=== PATIENT | female | born 1985 | race American Indian/Alaskan Native ===

== ENCOUNTER 2016-12-24 12:26 | Emergency (ER) | payer MEDICAID ==
[2016-12-24] MEDS ORDERED: Lidocaine 2% Viscous Solution 15 ML Cup PO ONE (13:31)
--- NOTE | 2016-12-24 13:37 | EDM.PDOC ---
ED HPI ENT - General Chief Complaint: ENT Problem Stated Complaint: HOLE IN TOOTH, FACE FEELS NUMB Time Seen by Provider: 12/24/16 13:35 Source of Information: Reports: Patient History Limitations: Reports: No limitations - History of Present Illness INITIAL COMMENTS - FREE TEXT/NARRATIVE: This 31 yo female patient reports to the ED with pain in her right upper posterior tooth. The patient reports she has noticed increased pain over the past week. The patient attempted to get into the [facility] today, but could not get into the clinic as they were closed today for [place]. Symptom Onset Date: 12/17/16 Timing/Duration: Reports: Constant, Getting worse Severity: moderate Location: Reports: mouth Quality: Reports: Ache, Sharp Improves with: Reports: None Worsens with: Reports: None Associated Symptoms: Reports: no other symptoms - Related Data Allergies/ADRs: Allergies Allergy/AdvReac Type Severity Reaction Status Date / Time No Known Allergies Allergy Verified 12/24/16 12:38 Home Meds: Home Meds Sertraline [Zoloft] 100 mg PO DAILY 03/06/14 [History] metFORMIN [Glucophage] 1,000 mg PO BID 06/30/14 [History] Lisinopril 10 mg PO DAILY 12/31/14 [History] glyBURIDE [Glyburide] 10 mg PO BID 12/31/14 [History] Insulin Detemir [Levemir] 25 unit SUBCUT BEDTIME 09/13/15 [History] Past Medical History HEENT History: Reports: None Cardiovascular History: Reports: High cholesterol, Hypertension Respiratory History: Reports: None Gastrointestinal History: Reports: Other (see below) Other Gastrointestinal History: ABNORMAL LIVER ENZYMES; ABCESS OF ABDOMINAL WALL Genitourinary History: Reports: None GYN History: Reports: , Other (see below) Other OB/BYN History: IUD IN PLACE Musculoskeletal History: Reports: Fracture, Other (see below) Other Musculoskeletal History: PLANTAR FASCITIS; BIMALLEOLAR FRATURE OF R ANKLE Neurological History: Reports: None Psychiatric History: Reports: Addiction, Depression, Other (see below) Other Psychiatric History: ALCOHOL HABITUATION; INTELLECTUAL DISABILITY- CEREBRAL PALSY Endocrine/Metabolic History: Reports: Diabetes, type II, Obesity/BMI 30+ Hematologic History: Reports: None Immunologic History: Reports: None Oncologic (Cancer) History: Reports: None Dermatologic History: Reports: None - Infectious Disease History Infectious Disease History: Reports: Chicken pox - Past Surgical History Head Surgeries/Procedures: Reports: None HEENT Surgical History: Reports: Adenoidectomy, Tonsillectomy Cardiovascular Surgical History: Reports: None Respiratory Surgical History: Reports: None GI Surgical History: Reports: None Female Surgical History: Reports: D&C, Dilitation & evacuation Endocrine Surgical History: Reports: None Neurological Surgical History: Reports: None Musculoskeletal Surgical History: Reports: Other (see below) Other Musculoskeletal Surgeries/Procedures:: R ANKLE SURGERY Oncologic Surgical History: Reports: None Social & Family History - Family History Family Medical History: Noncontributory - Tobacco Use Smoking Status *Q: Current Every Day Smoker Years of Tobacco use: 14 Packs/Tins Daily: 0.5 Used Tobacco, but Quit: No Second Hand Smoke Exposure: Yes - Caffeine Use Caffeine Use: Reports: Coffee, Soda - Alcohol Use Days Per Week of Alcohol Use: 0 - Recreational Drug Use Recreational Drug Use: Yes Recreational Drug Type: Reports: Marijuana/Hashish ED ROS ENT - Review of Systems Review Of Systems: ROS reveals no pertinent complaints other than HPI. ED EXAM, ENT - Physical Exam Exam: See Below Exam Limited By: No limitations General Appearance: alert, WD/WN, moderate distress Eye Exam: bilateral eye: EOMI, normal inspection, PERRL Ears: normal external exam, normal canal, hearing grossly normal, normal TMs Nose: normal inspection, normal mucousa, no blood Mouth/Throat: Dental pain, Dental tenderness, Other (Numerous teeth with dental caries) Head: atraumatic, normocephalic Neck: normal inspection, supple, non-tender, full range of motion Respiratory/Chest: no respiratory distress, lungs clear, normal breath sounds, no accessory muscle use, chest non-tender Cardiovascular: normal peripheral pulses, regular rate, rhythm, no edema, no gallop, no JVD, no murmur, no rub GI/Abdominal: normal bowel sounds, soft, non tender, no organomegaly, no distention, no abnormal bruit, no mass (Female) Exam: Deferred Rectal (Female) Exam: Deferred Back: normal inspection, full range of motion Extremities: normal inspection, normal range of motion, non-tender, no pedal edema, normal capillary refill Neurological: alert Psychiatric: normal affect, normal mood Skin: Warm, Dry, Intact, Normal color, No rash Lymphatic: no adenopathy Course - Orders/Labs/Meds Meds: Medications Discontinued Medications Generic Name Dose Route Start Last Admin Trade Name Javier PRN Reason Stop Dose Admin Lidocaine HCl 15 ml 12/24/16 13:31 Xylocaine 2% Viscous PO 12/24/16 13:32 ONETIME ONE Departure - Departure Time of Disposition: 13:25 Disposition: Home, Self-Care 01 Condition: fair Clinical Impression: Dental caries, Dental caries extending into dentin Instructions: Dental Caries, [id number] Forms: ED Department Discharge Care Plan Goals: The patient was advised of the examination results during the visit. The patient was given some Viscous Lidocaine 2% to apply to the affected area while in the ED. The patient was discharged with a script for Clindamycin (300 mg) # 30 to take 1 by mouth 3 times per day for 10 days and Viscous Lidocaine 2% #100 mL to apply 10 mL to the affected area 3 times per day as needed. The patient should follow-up with a dentist for continued evaluation and management.
[2016-12-24 14:04] VITALS: BP 136/87
== END 2016-12-24 13:39 | disposition home or self-care (01) ==
LOC: DL.ED 12:26
DX: K02.9 Dental caries, unspecified (principal); E78.00 Pure hypercholesterolemia, unspecified; I10 Essential (primary) hypertension; E11.9 Type 2 diabetes mellitus without complications; E66.9 Obesity, unspecified; F17.210 Nicotine dependence, cigarettes, uncomplicated; Z79.899 Other long term (current) drug therapy; Z98.890 Other specified postprocedural states
CPT/HCPCS: 99282; A9270

== ENCOUNTER 2017-06-24 21:23 | Emergency (ER) | payer MEDICAID ==
[2017-06-24 21:40] VITALS: BP 114/81
[2017-06-24 22:08] LABS: CHLORIDE,CL 102 mmol/L (101-111); SODIUM,NA 139 mmol/L (135-145)
--- NOTE | 2017-06-24 23:49 | EDM.PDOC ---
ED HPI GENERAL MEDICAL PROBLEM - General Chief Complaint: Drug or Alcohol Abuse Stated Complaint: IN BY AMBULANCE Time Seen by Provider: 06/24/17 21:40 Source of Information: Reports: EMS, Police History Limitations: Reports: Intoxication - History of Present Illness INITIAL COMMENTS - FREE TEXT/NARRATIVE: ED via [facility] called to residence by neighbor due to patient screaming. Upon entering residence, patient was found lying on floor, intoxicated and naked, No signs of injury and patient reported to have been fondling herself. Patient admits to drinking everyday for the apst 5 weeks since SO left her. Denied other drug use. - Related Data Allergies Allergy/AdvReac Type Severity Reaction Status Date / Time No Known Allergies Allergy Verified 06/24/17 21:39 Home Meds: Home Meds Sertraline [Zoloft] 100 mg PO DAILY 03/06/14 [History] metFORMIN [Glucophage] 1,000 mg PO BID 06/30/14 [History] Lisinopril 10 mg PO DAILY 12/31/14 [History] glyBURIDE [Glyburide] 10 mg PO BID 12/31/14 [History] Insulin Detemir [Levemir] 25 unit SUBCUT BEDTIME 09/13/15 [History] Past Medical History HEENT History: Reports: None Cardiovascular History: Reports: High Cholesterol, Hypertension Respiratory History: Reports: None Gastrointestinal History: Reports: Other (See Below) Other Gastrointestinal History: ABNORMAL LIVER ENZYMES; ABCESS OF ABDOMINAL WALL Genitourinary History: Reports: None SIDER History: Reports: , Other (See Below) Other OB/BYN History: IUD IN PLACE Musculoskeletal History: Reports: Fracture, Other (See Below) Other Musculoskeletal History: PLANTAR FASCITIS; BIMALLEOLAR FRATURE OF R ANKLE Neurological History: Reports: None Psychiatric History: Reports: Addiction, Depression, Other (See Below) Other Psychiatric History: ALCOHOL HABITUATION; INTELLECTUAL DISABILITY- CEREBRAL PALSY Endocrine/Metabolic History: Reports: Diabetes, Type II, Obesity/BMI 30+ Hematologic History: Reports: None Immunologic History: Reports: None Oncologic (Cancer) History: Reports: None Dermatologic History: Reports: None - Infectious Disease History Infectious Disease History: Reports: Chicken Pox - Past Surgical History Head Surgeries/Procedures: Reports: None HEENT Surgical History: Reports: Adenoidectomy, Tonsillectomy Respiratory Surgical History: Reports: None Female Surgical History: Reports: D&C, Dilitation & Evacuation Neurological Surgical History: Reports: None Musculoskeletal Surgical History: Reports: Other (See Below) Oncologic Surgical History: Reports: None Social & Family History - Family History Family Medical History: Noncontributory - Tobacco Use Smoking Status *Q: Current Every Day Smoker Years of Tobacco use: 14 Packs/Tins Daily: 0.5 Used Tobacco, but Quit: No Second Hand Smoke Exposure: Yes - Caffeine Use Caffeine Use: Reports: Coffee, Soda - Alcohol Use Days Per Week of Alcohol Use: 0 - Recreational Drug Use Recreational Drug Use: Yes Recreational Drug Type: Reports: Marijuana/Hashish ED ROS GENERAL - Review of Systems Review Of Systems: ROS reveals no pertinent complaints other than HPI. - Physical Exam Exam: See Below Exam Limited By: Intoxication General Appearance: Obese, Other (Drowsy, arouses to voice, ) Eye Exam: Bilateral Eye: EOMI, PERRL Ears: Normal External Exam, Normal TMs Nose: Other (scant dried blood right nare. Patient observed, picking nose. ) Neck: Normal Inspection Respiratory/Chest: No Respiratory Distress, Lungs Clear, Normal Breath Sounds Cardiovascular: Normal Peripheral Pulses, Regular Rate, Rhythm GI/Abdominal: Normal Bowel Sounds, Soft Neuro Exam (Abbreviated): Inattentive, Slow to Respond Back Exam: Normal Inspection Extremities: Normal Inspection Psychiatric: Normal Affect Skin Exam: Warm, Dry, Intact, Normal Color Course - Vital Signs Last Recorded V/S: Last Vital Signs Temp 96.4 F 06/24/17 21:39 Pulse 85 06/24/17 21:39 Resp 16 06/24/17 21:39 BP 114/81 06/24/17 21:39 Pulse Ox 95 06/24/17 21:39 - Orders/Labs/Meds Orders: Active Orders 24 hr Category Date Time Status Glucose [Blood Glucose Check, Bedside] [RC] ONETIME Care 06/24/17 23:10 Inactive Labs: Laboratory Tests 06/24/17 06/24/17 06/24/17 Range/Units 21:39 21:39 21:43 WBC 12.3 H (5.0-10.0) 10^3/uL RBC 5.45 H (4.2-5.4) 10^6/uL Hgb 14.9 D (12.0-16.0) g/dL Hct 44.4 (37.0-47.0) % MCV 81.5 (80-100) fL MCH 27.3 (27.0-34.0) pg MCHC 33.6 (33.0-35.0) g/dL Plt Count 279 D (150-450) 10^3/uL Neut % (Auto) 59.7 (42.2-75.2) % Lymph % (Auto) 31.7 (20.5-50.1) % [place] % (Auto) 6.5 (2-8) % Eos % (Auto) 1.7 (1.0-3.0) % Baso % (Auto) 0.4 (0.0-1.0) % Sodium (135-145) mmol/L Potassium (3.6-5.0) mmol/L Chloride (101-111) mmol/L Carbon Dioxide (21.0-31.0) mmol/L Anion Gap BUN (7-18) mg/dL Creatinine (0.6-1.3) mg/dL Est Cr Clr Drug Dosing mL/min Estimated GFR (MDRD) BUN/Creatinine Ratio Glucose (74-105) mg/dL Calcium (8.4-10.2) mg/dl Total Bilirubin (0.2-1.0) mg/dL AST (10-42) IU/L ALT (10-60) IU/L Alkaline Phosphatase (42-121) IU/L Total Protein (6.7-8.2) g/dl Albumin (3.2-5.5) g/dl Globulin Albumin/Globulin Ratio HCG, Qual Urine Color Light yellow (YELLOW) Urine Appearance Clear (CLEAR) Urine pH 6.0 (5.0-9.0) Ur Specific [place] <= 1.005 (1.005-1.030) Urine Protein Negative (NEGATIVE) Urine Glucose (UA) 500 H (NEGATIVE) Urine Ketones Negative (NEGATIVE) Urine Occult Blood Negative (NEGATIVE) Urine Nitrite Negative (NEGATIVE) Urine Bilirubin Negative (NEGATIVE) Urine Urobilinogen 0.2 (0.2-1.0) mg/dL Ur Leukocyte Esterase Negative (NEGATIVE) Urine RBC 0-5 /HPF Urine WBC 0-5 (0-5/HPF) /HPF Ur Epithelial Cells Rare /HPF Urine Bacteria Rare (0-FEW/HPF) /HPF Urine Opiates Screen Negative (NEGATIVE) Ur Oxycodone Screen Negative (NEGATIVE) Urine Methadone Screen Negative (NEGATIVE) Ur Barbiturates Screen Negative (NEGATIVE) U Tricyclic Antidepress Negative (NEGATIVE) Ur Phencyclidine Scrn Negative (NEGATIVE) Ur Amphetamine Screen Negative (NEGATIVE) U Methamphetamines Scrn Positive H (NEGATIVE) Urine MDMA Screen Negative (NEGATIVE) U Benzodiazepines Scrn Negative (NEGATIVE) Urine Cocaine Screen Negative (NEGATIVE) U Marijuana (THC) Screen Positive H (NEGATIVE) Ethyl Alcohol mg/dL 06/24/17 06/24/17 06/24/17 Range/Units 21:43 22:00 22:55 WBC (5.0-10.0) 10^3/uL RBC (4.2-5.4) 10^6/uL Hgb (12.0-16.0) g/dL Hct (37.0-47.0) % MCV (80-100) fL MCH (27.0-34.0) pg MCHC (33.0-35.0) g/dL Plt Count (150-450) 10^3/uL Neut % (Auto) (42.2-75.2) % Lymph % (Auto) (20.5-50.1) % [place] % (Auto) (2-8) % Eos % (Auto) (1.0-3.0) % Baso % (Auto) (0.0-1.0) % Sodium 139 (135-145) mmol/L Potassium 3.3 L (3.6-5.0) mmol/L Chloride 102 (101-111) mmol/L Carbon Dioxide 23.0 (21.0-31.0) mmol/L Anion Gap 17.3 BUN 6 L (7-18) mg/dL Creatinine 0.6 (0.6-1.3) mg/dL Est Cr Clr Drug Dosing 129.69 mL/min Estimated GFR (MDRD) > 60 BUN/Creatinine Ratio 10.00 Glucose 314 H (74-105) mg/dL Calcium 9.2 (8.4-10.2) mg/dl Total Bilirubin 0.5 (0.2-1.0) mg/dL AST 102 H (10-42) IU/L ALT 141 H (10-60) IU/L Alkaline Phosphatase 129 H (42-121) IU/L Total Protein 7.6 (6.7-8.2) g/dl Albumin 4.0 (3.2-5.5) g/dl Globulin 3.6 Albumin/Globulin Ratio 1.11 HCG, Qual Negative Urine Color (YELLOW) Urine Appearance (CLEAR) Urine pH (5.0-9.0) Ur Specific [place] (1.005-1.030) Urine Protein (NEGATIVE) Urine Glucose (UA) (NEGATIVE) Urine Ketones (NEGATIVE) Urine Occult Blood (NEGATIVE) Urine Nitrite (NEGATIVE) Urine Bilirubin (NEGATIVE) Urine Urobilinogen (0.2-1.0) mg/dL Ur Leukocyte Esterase (NEGATIVE) Urine RBC /HPF Urine WBC (0-5/HPF) /HPF Ur Epithelial Cells /HPF Urine Bacteria (0-FEW/HPF) /HPF Urine Opiates Screen (NEGATIVE) Ur Oxycodone Screen (NEGATIVE) Urine Methadone Screen (NEGATIVE) Ur Barbiturates Screen (NEGATIVE) U Tricyclic Antidepress (NEGATIVE) Ur Phencyclidine Scrn (NEGATIVE) Ur Amphetamine Screen (NEGATIVE) U Methamphetamines Scrn (NEGATIVE) Urine MDMA Screen (NEGATIVE) U Benzodiazepines Scrn (NEGATIVE) Urine Cocaine Screen (NEGATIVE) U Marijuana (THC) Screen (NEGATIVE) Ethyl Alcohol 330 284 mg/dL - Re-Assessments/Exams Free Text/Narrative Re-Assessment/Exam: Patient stripped off her clothing, sleeping, Easily arousable. Cooperative. Discharged to Detox. Departure - Departure Time of Disposition: 23:48 Disposition: Home, Self-Care 01 Condition: Fair Clinical Impression: Alcohol abuse, Drug abuse - Discharge Information Instructions: Alcohol Intoxication, [id number] Forms: ED Department Discharge Additional Instructions: stable medically for detox release when stable consider A&D eval when sober - My Orders Last 24 Hours: My Active Orders 06/24/17 23:10 Glucose [Blood Glucose Check, Bedside] [RC] ONETIME - Assessment/Plan Last 24 Hours: My Active Orders 06/24/17 23:10 Glucose [Blood Glucose Check, Bedside] [RC] ONETIME
== END 2017-06-25 00:05 | disposition home or self-care (01) ==
LOC: DL.ED 21:23
DX: F10.129 Alcohol abuse with intoxication, unspecified (principal); F17.210 Nicotine dependence, cigarettes, uncomplicated; E11.9 Type 2 diabetes mellitus without complications; I10 Essential (primary) hypertension; F32.9 Major depressive disorder, single episode, unspecified; E66.9 Obesity, unspecified; F19.10 Other psychoactive substance abuse, uncomplicated; Z79.4 Long term (current) use of insulin; Y90.8 Blood alcohol level of 240 mg/100 ml or more; Z79.899 Other long term (current) drug therapy
CPT/HCPCS: 36415; 80053; 80305; 81001; 84703; 85025; 99284; G0480

== ENCOUNTER 2017-10-11 18:12 | Emergency (ER) | payer MEDICAID | END 2017-10-11 19:13 | disposition left against medical advice (07) | LOC: DL.ED 18:12 | DX: Z53.21 Procedure and treatment not carried out due to patient leaving prior to being seen by health care provider (principal) ==

== ENCOUNTER 2018-04-19 04:53 | Emergency (ER) | payer MEDICAID ==
[2018-04-19 04:58] VITALS: BP 189/83
--- NOTE | 2018-04-19 05:02 | EDM.PDOC ---
ED HPI GENERAL MEDICAL PROBLEM - General Chief Complaint: Lower Extremity Injury/Pain Stated Complaint: SPRAINED ANKLE NO PHONE Time Seen by Provider: 04/19/18 05:01 Source of Information: Reports: Patient History Limitations: Reports: No Limitations - History of Present Illness INITIAL COMMENTS - FREE TEXT/NARRATIVE: reports falling while walking 2 hours ago, pain, unable to bear weight. Same ankle as "shattered 2-3 years ago." Admits ETOH few hours prior. Pain right ankle Right Ankle Pain Score (Numeric/FACES): 8 - Related Data Allergies Allergy/AdvReac Type Severity Reaction Status Date / Time No Known Allergies Allergy Verified 04/19/18 05:01 Home Meds: Home Meds Sertraline [Zoloft] 100 mg PO DAILY 03/06/14 [History] metFORMIN [Glucophage] 1,000 mg PO BID 06/30/14 [History] Lisinopril 10 mg PO DAILY 12/31/14 [History] glyBURIDE [Glyburide] 10 mg PO BID 12/31/14 [History] Insulin Detemir [Levemir] 25 unit SUBCUT BEDTIME 09/13/15 [History] Past Medical History HEENT History: Reports: None Cardiovascular History: Reports: High Cholesterol, Hypertension Respiratory History: Reports: None Gastrointestinal History: Reports: Other (See Below) Other Gastrointestinal History: ABNORMAL LIVER ENZYMES; ABCESS OF ABDOMINAL WALL Genitourinary History: Reports: None PLASTER DIE MAKER History: Reports: , Other (See Below) Other PLASTER DIE MAKER History: IUD IN PLACE Musculoskeletal History: Reports: Fracture, Other (See Below) Other Musculoskeletal History: PLANTAR FASCITIS; BIMALLEOLAR FRATURE OF R ANKLE Neurological History: Reports: None Psychiatric History: Reports: Addiction, Depression, Other (See Below) Other Psychiatric History: ALCOHOL HABITUATION; INTELLECTUAL DISABILITY- CEREBRAL PALSY Endocrine/Metabolic History: Reports: Diabetes, Type II, Obesity/BMI 30+ Hematologic History: Reports: None Immunologic History: Reports: None Oncologic (Cancer) History: Reports: None Dermatologic History: Reports: None - Infectious Disease History Infectious Disease History: Reports: Chicken Pox - Past Surgical History Head Surgeries/Procedures: Reports: None HEENT Surgical History: Reports: Adenoidectomy, Tonsillectomy Respiratory Surgical History: Reports: None Female Surgical History: Reports: D&C, Dilitation & Evacuation Neurological Surgical History: Reports: None Musculoskeletal Surgical History: Reports: Other (See Below) Other Musculoskeletal Surgeries/Procedures:: surgery 2-3 years ago on right ankle Oncologic Surgical History: Reports: None Social & Family History - Family History Family Medical History: Noncontributory - Caffeine Use Caffeine Use: Reports: Coffee, Soda Review of Systems - Review of Systems Review Of Systems: ROS reveals no pertinent complaints other than HPI. ED EXAM, GENERAL - Physical Exam Exam: See Below Exam Limited By: No Limitations General Appearance: Alert, Mild Distress Eye Exam: Bilateral Eye: EOMI (sclera injected) Ears: Normal External Exam, Hearing Grossly Normal Nose: Normal Inspection Respiratory/Chest: No Respiratory Distress Cardiovascular: Normal Peripheral Pulses, Regular Rate, Rhythm Extremities: Normal Range of Motion, Joint Swelling (right ankle) Neurological: Alert, Oriented, Normal Cognition Skin Exam: Warm, Dry, Intact, Ecchymosis (right lateral ankle and forefoot.), Other (well healed surgical scars right ankle) Course - Vital Signs Last Recorded V/S: Last Vital Signs Temp 97.9 F 04/19/18 04:54 Pulse 113 H 04/19/18 04:54 Resp 18 04/19/18 04:54 BP 189/83 H 04/19/18 04:54 Pulse Ox 97 04/19/18 04:54 - Orders/Labs/Meds Meds: Medications Discontinued Medications Generic Name Dose Route Start Last Admin Trade Name Javier PRN Reason Stop Dose Admin Acetaminophen 650 mg 04/19/18 05:29 04/19/18 05:50 Tylenol PO 04/19/18 05:30 650 mg NOW ONE Administration - Radiology Interpretation Free Text/Narrative:: Name: KAYODE SERRANO Age: 33Years F Date: 04/19/2018 SSN: -- : 1985 Study: XR ANKLE COMPLETE MIN 3 VIEWS Requesting Physician: LYNN SIDDIQI Images: 3 Addl Studies: Provided Clinical History: Contrast: Contrast Medium: Contrast Amount: Contrast Method: CONFIDENTIALITY STATEMENT This report is intended only for use by the referring physician, and only in accordance with law. If you received this in error, call [phone]. Page 1 of 1 EXAM: XR Right Ankle Complete, 3 or More Views CLINICAL HISTORY: 33 years old, female; Signs and symptoms; Other: Fall/pain TECHNIQUE: Frontal, lateral and oblique views of the right ankle. COMPARISON: CR - Ankle Min 3V Rt 2014-12-31 03:00 FINDINGS: Bones/joints: Status post internal fixation of a bimalleolar fracture with excellent alignment No acute fracture or dislocation Osteoarthritis of the ankle joint Soft tissues: Unremarkable. IMPRESSION: No acute fracture dislocation Thank you for allowing us to participate in the care of your patient. Dictated and Authenticated by: Saran Walker MD 04/19/2018 6:27 AM Central Time ([place] & [place]) Departure - Departure Time of Disposition: 06:33 Disposition: Home, Self-Care 01 Condition: Good Clinical Impression: Right ankle sprain Qualifiers: Encounter type: initial encounter Involved ligament of ankle: unspecified ligament Qualified Code(s): S93.401A - Sprain of unspecified ligament of right ankle, initial encounter - Discharge Information *PRESCRIPTION DRUG MONITORING PROGRAM REVIEWED*: No Instructions: Ankle Sprain, [id number] Forms: ED Department Discharge Additional Instructions: ice, elevate, liz wrap, may use black boot if locate crutches, weight bearing as tolerated follow up in clinic one week if unable to bear weight Tylenol or ibuprofen, may alternate every 4 hours as needed
[2018-04-19] MEDS ORDERED: Acetaminophen 325 MG Tab PO ONE (05:29)
== END 2018-04-19 06:43 | disposition home or self-care (01) ==
LOC: DL.ED 04:53
DX: S93.401A Sprain of unspecified ligament of right ankle, initial encounter (principal); I10 Essential (primary) hypertension; E11.9 Type 2 diabetes mellitus without complications; E66.9 Obesity, unspecified; Z79.899 Other long term (current) drug therapy; W19.XXXA Unspecified fall, initial encounter
CPT/HCPCS: 73610; 99283; A9270

== ENCOUNTER 2018-05-12 01:35 | Emergency (ER) | payer MEDICAID ==
[2018-05-12 01:49] VITALS: BP 118/62
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
[2018-05-12] MEDS ORDERED: MVI, Adult with Vitamin K 10 ML, Folic Acid 1 MG, Thiamine 100 MG in Lactated Ringers 1... IV ONE ×4 (01:59)
[2018-05-12 02:24] LABS: ACETAMINOPHEN < 10
[2018-05-12 02:25] LABS: ANION GAP 14.6; CHLORIDE,CL 103 mmol/L (101-111); SODIUM,NA 139 mmol/L (135-145)
== END 2018-05-12 02:54 | disposition home or self-care (01) ==
LOC: DL.ED 01:35
DX: F10.129 Alcohol abuse with intoxication, unspecified (principal); F15.10 Other stimulant abuse, uncomplicated; I10 Essential (primary) hypertension; E11.9 Type 2 diabetes mellitus without complications; E66.9 Obesity, unspecified; Z79.4 Long term (current) use of insulin; Y90.8 Blood alcohol level of 240 mg/100 ml or more; Z79.899 Other long term (current) drug therapy
CPT/HCPCS: 36415; 80053; 80305; 81001; 81025; 85025; 96374; 99283; G0480; J3411; J7120; J3490

== ENCOUNTER 2018-06-05 14:52 | Emergency (ER) | payer MEDICAID ==
[2018-06-05 15:03] VITALS: BP 146/95
[2018-06-05] MEDS ORDERED: Ondansetron 4 MG/2 ML SDV IV ONE (15:18)
[2018-06-05] MEDS ORDERED: Sodium Chloride 0.9% 1,000 ML IV ONE (15:18)
[2018-06-05 15:56] LABS: ANION GAP 17.5; CHLORIDE,CL 94 mmol/L (101-111); SODIUM,NA 131 mmol/L (135-145)
== END 2018-06-05 16:35 | disposition left against medical advice (07) ==
LOC: DL.ED 14:52
DX: Z53.20 Procedure and treatment not carried out because of patient's decision for unspecified reasons (principal)
CPT/HCPCS: 36415; 80053; 81001; 82150; 83690; 85025; 96365; 96375; 99283; J2405; J7030

== ENCOUNTER 2018-06-12 15:19 | Observation (INO) | payer MEDICAID ==
[2018-06-12 15:59] LABS: ANION GAP 16.3; CHLORIDE,CL 100 mmol/L (101-111); SODIUM,NA 133 mmol/L (135-145)
[2018-06-12] MEDS ORDERED: Sodium Chloride 0.9% 10 ML Syringe FLUSH PRN (16:21)
[2018-06-12] MEDS ORDERED: MVI, Adult with Vitamin K 10 ML, Thiamine 100 MG, Folic Acid 1 MG in Lactated Ringers 1... IV ONE ×4 (16:21)
--- NOTE | 2018-06-12 16:34 | EDM.PDOCBH ---
Scribed by Bethanie Manning 06/12/18 [id number] for Lester Winslow MD ED HPI GENERAL MEDICAL PROBLEM - General Chief Complaint: Drug or Alcohol Abuse Stated Complaint: MEDICAL CLEARANCE Time Seen by Provider: 06/12/18 15:47 Source of Information: Reports: Patient, RN, RN Notes Reviewed History Limitations: Reports: Intoxication - History of Present Illness INITIAL COMMENTS - FREE TEXT/NARRATIVE: Patient was brought to ER by police for medical clearance due to being found intoxicated and "passed out" in a chair at someone's home. Patient admits to heavy alcohol use, but ie unable to provide any other history. Onset: Today Severity: Moderate Improves with: Reports: None Worsens with: Reports: None Associated Symptoms: Reports: No Other Symptoms - Related Data Allergies Allergy/AdvReac Type Severity Reaction Status Date / Time No Known Allergies Allergy Verified 06/11/18 07:04 Home Meds: Home Meds Sertraline [Zoloft] 100 mg PO DAILY 03/06/14 [History] metFORMIN [Glucophage] 1,000 mg PO BID 06/30/14 [History] Lisinopril 10 mg PO DAILY 12/31/14 [History] glyBURIDE [Glyburide] 10 mg PO BID 12/31/14 [History] Insulin Detemir [Levemir] 25 unit SUBCUT BEDTIME 09/13/15 [History] Past Medical History HEENT History: Reports: None Cardiovascular History: Reports: High Cholesterol, Hypertension Respiratory History: Reports: None Gastrointestinal History: Reports: Other (See Below) Other Gastrointestinal History: ABNORMAL LIVER ENZYMES; ABCESS OF ABDOMINAL WALL Genitourinary History: Reports: None BALL HOLDER History: Reports: , Other (See Below) Other BALL HOLDER History: IUD IN PLACE Musculoskeletal History: Reports: Fracture, Other (See Below) Other Musculoskeletal History: PLANTAR FASCITIS; BIMALLEOLAR FRATURE OF R ANKLE Neurological History: Reports: None Psychiatric History: Reports: Addiction, Depression, Other (See Below) Other Psychiatric History: ALCOHOL HABITUATION; INTELLECTUAL DISABILITY- CEREBRAL PALSY Endocrine/Metabolic History: Reports: Diabetes, Type II, Obesity/BMI 30+ Hematologic History: Reports: None Immunologic History: Reports: None Oncologic (Cancer) History: Reports: None Dermatologic History: Reports: None - Infectious Disease History Infectious Disease History: Reports: Chicken Pox - Past Surgical History Head Surgeries/Procedures: Reports: None HEENT Surgical History: Reports: Adenoidectomy, Tonsillectomy Respiratory Surgical History: Reports: None Female Surgical History: Reports: D&C, Dilitation & Evacuation Neurological Surgical History: Reports: None Musculoskeletal Surgical History: Reports: Other (See Below) Other Musculoskeletal Surgeries/Procedures:: surgery 2-3 years ago on right ankle Oncologic Surgical History: Reports: None Social & Family History - Family History Family Medical History: Noncontributory - Caffeine Use Caffeine Use: Reports: Coffee - Living Situation & Occupation Living situation: Reports: Single, Other (homeless, currently living in a alf) Occupation: Unemployed ED ROS GENERAL - Review of Systems Review Of Systems: ROS reveals no pertinent complaints other than HPI. ED EXAM, BEHAVIORAL HEALTH - Physical Exam Exam: See Below Exam Limited By: Intoxication General Appearance: Alert, No Apparent Distress, Other (moderate to severely intoxicated) Eye Exam: Bilateral Eye: EOMI, Nystagmus (lateral gaze ), PERRL Ears: Normal External Exam Nose: Normal Mucosa, No Blood, Other (subacute abrasion with dried eschar, which was present yesterday during the exam to the tip of the nose. ) Head: Atraumatic, Normocephalic Neck: Normal Inspection, Supple, Non-Tender, Full Range of Motion Respiratory/Chest: No Respiratory Distress Cardiovascular: Regular Rate, Rhythm GI/Abdominal: Normal Bowel Sounds, Soft, Non-Tender, No Distention Back Exam: Normal Inspection Extremities: Normal Inspection Neurological: Alert, Other (intoxicated with no focal neurological deficits) COURSE, BEHAVIORAL HEALTH COMP - Course Vital Signs: Last Vital Signs Temp 36.2 C 06/12/18 15:37 Pulse 76 06/12/18 15:37 Resp 16 06/12/18 15:37 BP 120/59 L 06/12/18 15:37 Pulse Ox 93 L 06/12/18 15:37 Orders, Labs, Meds: Active Orders 24 hr Category Date Time Status Peripheral IV Care [RC] . DIRECTED Care 06/12/18 16:21 Active DRUG SCREEN URINE BIORAD [URCHEM] Stat Lab 06/12/18 16:12 Received HCG QUALITATIVE,URINE [URCHEM] Stat Lab 06/12/18 16:12 Received UA W/MICROSCOPIC [URIN] Stat Lab 06/12/18 16:11 Received MVI, Adult with Vitamin K [Infuvite Adult] 10 ml Med 06/12/18 16:21 Active Thiamine [Vitamin B-1] 100 mg Folic Acid 1 mg Lactated Ringers [Ringers, Lactated] 1,000 ml IV .BOLUS Sodium Chloride 0.9% [Saline Flush] Med 06/12/18 16:21 Active 10 ml FLUSH ASDIRECTED PRN Peripheral IV Insertion Adult [OM.PC] Stat Oth 06/12/18 16:21 Ordered Medication Orders Multivitamins/Minerals 10 ml/Thiamine HCl 100 mg/ Folic Acid 1 mg/ Lactated Ringer's 1,011.2 mls @ 999 mls/hr IV .BOLUS ONE Stop: 06/12/18 17:21 Sodium Chloride (Saline Flush) 10 ml FLUSH ASDIRECTED PRN PRN Reason: Keep Vein Open Laboratory Tests 06/12/18 06/12/18 Range/Units 15:30 15:30 WBC 10.2 H (5.0-10.0) 10^3/uL RBC 4.61 (4.2-5.4) 10^6/uL Hgb 13.1 (12.0-16.0) g/dL Hct 40.3 (37.0-47.0) % MCV 87.4 (80-100) fL MCH 28.4 (27.0-34.0) pg MCHC 32.5 L (33.0-35.0) g/dL Plt Count 264 (150-450) 10^3/uL Neut % (Auto) 56.1 (42.2-75.2) % Lymph % (Auto) 33.1 (20.5-50.1) % [place] % (Auto) 8.3 H (2-8) % Eos % (Auto) 1.9 (1.0-3.0) % Baso % (Auto) 0.6 (0.0-1.0) % Sodium 133 L (135-145) mmol/L Potassium 3.3 L (3.6-5.0) mmol/L Chloride 100 L (101-111) mmol/L Carbon Dioxide 20.0 L (21.0-31.0) mmol/L Anion Gap 16.3 BUN 4 L (7-18) mg/dL Creatinine 0.5 L (0.6-1.3) mg/dL Est Cr Clr Drug Dosing 154.17 mL/min Estimated GFR (MDRD) > 60 BUN/Creatinine Ratio 8.00 Glucose 346 H (74-105) mg/dL Calcium 8.4 (8.4-10.2) mg/dl Total Bilirubin 0.2 (0.2-1.0) mg/dL AST 137 H (10-42) IU/L ALT 93 H (10-60) IU/L Alkaline Phosphatase 125 H (42-121) IU/L Total Protein 7.3 (6.7-8.2) g/dl Albumin 3.4 (3.2-5.5) g/dl Globulin 3.9 Albumin/Globulin Ratio 0.87 Ethyl Alcohol 415 mg/dL Medications Generic Name Dose Route Start Last Admin Trade Name Freq PRN Reason Stop Dose Admin Multivitamins/Minerals 10 ml/ 1,011.2 mls @ 999 mls/hr 06/12/18 16:21 Thiamine HCl 100 mg/ Folic IV 06/12/18 17:21 Acid 1 mg/ Lactated Ringer's .BOLUS ONE Sodium Chloride 10 ml 06/12/18 16:21 Saline Flush FLUSH ASDIRECTED PRN Keep Vein Open Re-Assessment/Re-Exam: Patient unable to be medically cleared for senior living due to level of alcohol intoxication; therefore, will be admitted to observation status at this time. Departure - Departure Time of Disposition: 16:22 ((Admit to Dr. Gary)) Disposition: Refer to Observation Condition: Fair Clinical Impression: Alcohol abuse Acute alcohol intoxication Qualifiers: Complication of substance-induced condition: with unspecified complication Qualified Code(s): F10.929 - Alcohol use, unspecified with intoxication, unspecified - Discharge Information *PRESCRIPTION DRUG MONITORING PROGRAM REVIEWED*: No *COPY OF PRESCRIPTION DRUG MONITORING REPORT IN PATIENT ELOISA: No Forms: ED Department Discharge - My Orders Last 24 Hours: My Active Orders 06/12/18 16:11 UA W/MICROSCOPIC [URIN] Stat 06/12/18 16:12 DRUG SCREEN URINE BIORAD [URCHEM] Stat HCG QUALITATIVE,URINE [URCHEM] Stat 06/12/18 16:21 Peripheral IV Care [RC] . DIRECTED MVI, Adult with Vitamin K [Infuvite Adult] 10 ml Thiamine [Vitamin B-1] 100 mg Folic Acid 1 mg Lactated Ringers [Ringers, Lactated] 1,000 ml IV .BOLUS Sodium Chloride 0.9% [Saline Flush] 10 ml FLUSH ASDIRECTED PRN Peripheral IV Insertion Adult [OM.PC] Stat - Assessment/Plan Last 24 Hours: My Active Orders 06/12/18 16:11 UA W/MICROSCOPIC [URIN] Stat 06/12/18 16:12 DRUG SCREEN URINE BIORAD [URCHEM] Stat HCG QUALITATIVE,URINE [URCHEM] Stat 06/12/18 16:21 Peripheral IV Care [RC] . DIRECTED MVI, Adult with Vitamin K [Infuvite Adult] 10 ml Thiamine [Vitamin B-1] 100 mg Folic Acid 1 mg Lactated Ringers [Ringers, Lactated] 1,000 ml IV .BOLUS Sodium Chloride 0.9% [Saline Flush] 10 ml FLUSH ASDIRECTED PRN Peripheral IV Insertion Adult [OM.PC] Stat I have read and agree with the documentation that has been completed regarding this visit. By signing this record, I attest that the documentation was completed in my physical presence and is an accurate record of the encounter.
[2018-06-12] MEDS ORDERED: metroNIDAZOLE 250 MG Tab PO ONE (17:26)
[2018-06-12] MEDS ORDERED: Ondansetron 4 MG/2 ML SDV IVPUSH PRN (19:14)
[2018-06-12] MEDS ORDERED: LORazepam 1 MG Tab PO PRN (19:17)
[2018-06-12] MEDS ORDERED: 50% Dextrose in Water 50 ML Syringe IVPUSH PRN (19:19)
[2018-06-12] MEDS: Sodium Chloride 0.9% with KCl 1,000 ML IV SCH (19:42)
[2018-06-12] MEDS: LORazepam 2 MG/ML Syringe IVPUSH PRN (19:47)
[2018-06-12] MEDS: Insulin Aspart 100 Units/ML 3 ML Pen SUBCUT SCH (21:42)
[2018-06-12] MEDS: glyBURIDE 5 MG Tab PO SCH ×2 (21:42→23:15)
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
[2018-06-13] MEDS: LORazepam 2 MG/ML Syringe IVPUSH PRN ×2 (01:19→06:07)
[2018-06-13] MEDS: Sodium Chloride 0.9% with KCl 1,000 ML IV SCH (05:52)
[2018-06-13 07:05] LABS: ANION GAP 9.7; CHLORIDE,CL 104 mmol/L (101-111); SODIUM,NA 136 mmol/L (135-145)
[2018-06-13] MEDS: Insulin Aspart 100 Units/ML 3 ML Pen SUBCUT SCH ×3 (08:01→16:47)
[2018-06-13] MEDS: glyBURIDE 5 MG Tab PO SCH ×2 (08:16→17:22)
[2018-06-13] MEDS ORDERED: Insulin Detemir 100 Units/ML 3 ML Pen SUBCUT SCH (09:00)
[2018-06-13] MEDS ORDERED: Enoxaparin 40 MG/0.4 ML Syringe SUBCUT SCH (09:00)
[2018-06-13] MEDS ORDERED: Lisinopril 10 MG Tab PO SCH (09:00)
[2018-06-13] MEDS ORDERED: Sertraline 50 MG Tab PO SCH (09:00)
[2018-06-13 11:05] VITALS: BP 141/76
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
== END 2018-06-13 18:11 | disposition home or self-care (01) ==
LOC: DL.ED 15:19 → DL.MS 17:08
PROVIDERS: ADMIT Internal Medicine; ATTEND Internal Medicine
DX: G31.2 Degeneration of nervous system due to alcohol (principal); F10.129 Alcohol abuse with intoxication, unspecified; Y90.8 Blood alcohol level of 240 mg/100 ml or more; E87.1 Hypo-osmolality and hyponatremia; E87.6 Hypokalemia; I10 Essential (primary) hypertension; E11.9 Type 2 diabetes mellitus without complications; E66.9 Obesity, unspecified; Z68.34 Body mass index [BMI] 34.0-34.9, adult; E87.2 Acidosis; E78.5 Hyperlipidemia, unspecified; Z79.4 Long term (current) use of insulin; Z79.899 Other long term (current) drug therapy
CPT/HCPCS: 36415; 80048; 80053; 80076; 80305; 81001; 81025; 82962; 83735; 84100; 85025; 85027; 90686; 96365; 99284; A9270; G0480; J1650; J1815; J2060; J2405; J3411; J3480; J7050; J7120; 96366; 96367; 96372; 96375; 96376; G0378; J3490

== ENCOUNTER 2018-10-23 13:28 | Emergency (ER) | payer MEDICAID ==
[2018-10-23 11:24] VITALS: BP 148/106
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
[2018-10-23 12:31] LABS: ANION GAP 20.7; CHLORIDE,CL 93 mmol/L (101-111); SODIUM,NA 132 mmol/L (135-145)
[2018-10-23 12:32] LABS: ACETAMINOPHEN < 10 ug/mL
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
[~2018-10-23 13:28] MED LIST: Cephalexin 500 MG Cap PO ONE; Ketorolac 30 MG/ML SDV IM ONE
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
== END 2018-10-23 14:17 | disposition home or self-care (01) ==
LOC: DL.ED 13:28
DX: S02.2XXA Fracture of nasal bones, initial encounter for closed fracture (principal); S00.83XA Contusion of other part of head, initial encounter; S30.0XXA Contusion of lower back and pelvis, initial encounter; N39.0 Urinary tract infection, site not specified; E78.00 Pure hypercholesterolemia, unspecified; I10 Essential (primary) hypertension; L03.012 Cellulitis of left finger; F17.210 Nicotine dependence, cigarettes, uncomplicated; Z59.0 Homelessness; Z79.84 Long term (current) use of oral hypoglycemic drugs; Z79.899 Other long term (current) drug therapy; Z79.4 Long term (current) use of insulin; Y04.8XXA Assault by other bodily force, initial encounter
CPT/HCPCS: 36415; 70486; 71101; 72100; 80053; 80305; 81001; 81025; 83735; 85025; 87040; 87086; 87088; 87186; 96372; 99284; A9270; G0480; J1885